=== PATIENT | female | born 1970 | race Caucasian/White ===

== ENCOUNTER → 2016-11-11 | Outpatient (CLI) | payer OTHER | LOC: KOH-I 14:57 | DX: M25.552 Pain in left hip (principal) | CPT/HCPCS: 73502 ==

== ENCOUNTER → 2016-12-29 | Outpatient (CLI) | payer OTHER | LOC: MAMO 13:51 | DX: Z12.31 Encounter for screening mammogram for malignant neoplasm of breast (principal); Z90.710 Acquired absence of both cervix and uterus | CPT/HCPCS: G0202 ==

== ENCOUNTER → 2020-11-22 | Outpatient (CLI) | payer OTHER ==
[~2020-11-22] MED LIST: BYSTOLIC5 MG PO; CYCLOBENZAPRINE10 MG PO; ECOTRIN81 MG PO; FLEXERIL PO; IBUPROFEN800 MG PO; KEFLEX CAP 500500 MG PO; KEFLEX500 MG PO; MIRALAX17 GM PO; NORCO 10-325 T1 EACH PO; PROTONIX 40 MG40 M1 PO; PROTONIX40 MG PO; VITAMIN C500 M1 PO; VITAMIN C500 M4 PO; ZOFRAN4 MG PO
[2020-11-22 11:59] LABS: BUN/CREATININE RATIO 20 (0-10)
== END ==
LOC: LAB 11:15
PROVIDERS: Family Medicine
DX: E55.9 Vitamin D deficiency, unspecified (principal); E78.5 Hyperlipidemia, unspecified; E66.9 Obesity, unspecified
CPT/HCPCS: 36415; 80053; 80061; 84443

== ENCOUNTER → 2020-12-30 | Outpatient (CLI) | payer OTHER | LOC: KOH-I 08:26 | DX: M25.552 Pain in left hip (principal); M54.5 Low back pain; M47.816 Spondylosis without myelopathy or radiculopathy, lumbar region; N20.0 Calculus of kidney | CPT/HCPCS: 72110; 73502 ==

== ENCOUNTER → 2021-01-16 | Outpatient (CLI) | payer OTHER | LOC: MAMO 13:51 | DX: Z12.31 Encounter for screening mammogram for malignant neoplasm of breast (principal) | CPT/HCPCS: 77063; 77067 ==